=== PATIENT | female | born 1985 | race Two or more races ===

== ENCOUNTER 2024-04-08 09:42 | Emergency (ER) | payer OTHER ==
[~2024-04-08] VITALS: Ht 160 cm; Wt 105.0 kg
[2024-04-08 10:23] VITALS: BP 134/77; PULSE 90; RESP 17; TEMP 98; O2SAT 98
[2024-04-08] MEDS ORDERED: HYDR-4924 PO (10:42)
[2024-04-08] MEDS ORDERED: ZOLP12.569 PO (10:42)
== END 2024-04-08 10:50 | disposition home or self-care (01) ==
LOC: ER 09:42
DX: F41.9 Anxiety disorder, unspecified (principal)
CPT/HCPCS: 82962